=== PATIENT | male | born 1990 | race African-American/Black ===

== ENCOUNTER 2019-04-25 09:35 | Emergency (ER) | payer MEDICAID ==
[~2019-04-25] VITALS: Ht 180.3 cm; Wt 91.6 kg
[2019-04-25 10:08] VITALS: BP 141/80
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
[2019-04-25] MEDS ORDERED: KETOROLAC 30 MG/1 ML ONE (10:29)
[2019-04-25] MEDS ORDERED: KETOROLAC 30 MG/1 ML IM ONE (10:30)
--- NOTE | 2019-04-25 10:31 | NUR ---
PT MEDICATED PER ORDERS.
--- NOTE | 2019-04-25 10:49 | NUR ---
PT TO RADIOLOGY.
--- NOTE | 2019-04-25 10:52 | NUR ---
REPORT GIVEN TO GREGORY SHARP RN. CARE TRANSFERRED.
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
--- NOTE | 2019-04-25 12:00 | NUR ---
IS TEACHING COMPLETED
== END 2019-04-25 12:03 | disposition home or self-care (01) ==
LOC: ED 11:50
DX: S83.92XA Sprain of unspecified site of left knee, initial encounter (principal); R07.89 Other chest pain; F17.210 Nicotine dependence, cigarettes, uncomplicated; X58.XXXA Exposure to other specified factors, initial encounter; Y93.89 Activity, other specified; Y92.410 Unspecified street and highway as the place of occurrence of the external cause; Y99.8 Other external cause status
CPT/HCPCS: 29505; 71101; 73564; 96372; 99284; J1885

== ENCOUNTER 2020-10-17 18:38 | Emergency (ER) | payer MEDICAID ==
[~2020-10-17] VITALS: Ht 180.3 cm; Wt 84.8 kg
[2020-10-17 19:04] VITALS: BP 129/99
[2020-10-17] MEDS ORDERED: DIPH,PERTUSS(ACELL),TET VAC/PF 0.5 ML IM-VACC ONE ×2 (19:30→19:49)
[2020-10-17] MEDS ORDERED: NEOSPORIN OINT. PKT 1 PACKET ONE (19:57)
== END 2020-10-17 20:11 | disposition home or self-care (01) ==
LOC: ED 19:08
DX: S80.811A Abrasion, right lower leg, initial encounter (principal); Z48.01 Encounter for change or removal of surgical wound dressing; W18.30XA Fall on same level, unspecified, initial encounter; Y93.89 Activity, other specified; Y92.410 Unspecified street and highway as the place of occurrence of the external cause; Y99.8 Other external cause status
CPT/HCPCS: 90471; 90715